=== PATIENT | female | born 1985 | race Caucasian/White ===

== ENCOUNTER 2017-06-13 14:22 | Emergency (ER) | payer OTHER ==
[~2017-06-13] VITALS: Ht 165.1 cm; Wt 61.7 kg
[2017-06-13 14:29] VITALS: BP 123/80; Ht 165.1 cm; Wt 61.7 kg
== END 2017-06-13 15:35 | disposition home or self-care (01) ==
LOC: ED 14:22
DX: G89.29 Other chronic pain (principal); M54.2 Cervicalgia; M54.9 Dorsalgia, unspecified; V89.2XXA Person injured in unspecified motor-vehicle accident, traffic, initial encounter; Y93.73 Activity, racquet and hand sports; Y92.89 Other specified places as the place of occurrence of the external cause; Y99.8 Other external cause status
CPT/HCPCS: J1885

== ENCOUNTER 2017-06-27 15:04 | Emergency (ER) | payer OTHER ==
[~2017-06-27] VITALS: Ht 167.6 cm; Wt 64.9 kg
[2017-06-27 15:19] VITALS: Ht 167.6 cm; Wt 64.9 kg
[2017-06-27 16:56] LABS: BASOPHIL % 0.1 % (0-2); PLATELET COUNT 277 x10^3mcL (130-400); RED CELL DISTRIBUTION WIDTH 12.5 % (11.5-14.5)
[2017-06-27 17:55] VITALS: BP 134/74
== END 2017-06-27 17:55 | disposition home or self-care (01) ==
LOC: ED 15:04
PROVIDERS: Emergency Medicine
DX: K62.5 Hemorrhage of anus and rectum (principal); K59.00 Constipation, unspecified; G89.29 Other chronic pain; M54.9 Dorsalgia, unspecified; F31.9 Bipolar disorder, unspecified; F90.9 Attention-deficit hyperactivity disorder, unspecified type
CPT/HCPCS: 36415

== ENCOUNTER 2017-09-17 17:48 | Emergency (ER) | payer OTHER ==
[~2017-09-17] VITALS: Ht 165.1 cm; Wt 65.3 kg
[2017-09-17 17:58] VITALS: Ht 165.1 cm; Wt 65.3 kg
[2017-09-17 21:17] VITALS: BP 148/84
== END 2017-09-17 21:17 | disposition home or self-care (01) ==
LOC: ED 17:48
DX: L25.8 Unspecified contact dermatitis due to other agents (principal); F31.9 Bipolar disorder, unspecified; Z88.5 Allergy status to narcotic agent
CPT/HCPCS: J2930; Q0163

== ENCOUNTER 2018-08-13 01:41 | Emergency (ER) | payer OTHER ==
[~2018-08-13] VITALS: Ht 165.1 cm; Wt 66.0 kg
[2018-08-13 01:52] VITALS: Ht 165.1 cm; Wt 66.0 kg
[2018-08-13 04:12] VITALS: BP 137/77
== END 2018-08-13 04:12 | disposition home or self-care (01) ==
LOC: ED 01:41
DX: K64.9 Unspecified hemorrhoids (principal); F31.9 Bipolar disorder, unspecified

== ENCOUNTER 2019-01-11 16:49 | Emergency (ER) | payer OTHER ==
[~2019-01-11] VITALS: Ht 167.6 cm; Wt 74.6 kg
[2019-01-11 17:36] VITALS: Ht 167.6 cm; Wt 74.6 kg
[2019-01-11 19:25] VITALS: BP 114/71
== END 2019-01-11 19:25 | disposition home or self-care (01) ==
LOC: ED 16:49
DX: S81.832A Puncture wound without foreign body, left lower leg, initial encounter (principal); F31.9 Bipolar disorder, unspecified; G89.29 Other chronic pain; W54.0XXA Bitten by dog, initial encounter; Y93.89 Activity, other specified; Y92.89 Other specified places as the place of occurrence of the external cause; Y99.8 Other external cause status
CPT/HCPCS: 90715

== ENCOUNTER 2019-05-29 15:13 | Emergency (ER) | payer OTHER ==
[~2019-05-29] VITALS: Ht 167.6 cm; Wt 63.5 kg
[2019-05-29 16:50] VITALS: BP 124/72
== END 2019-05-29 16:50 | disposition home or self-care (01) ==
LOC: ED 15:13
DX: J32.9 Chronic sinusitis, unspecified (principal); G89.29 Other chronic pain

== ENCOUNTER 2020-05-19 09:21 | Emergency (ER) | payer OTHER ==
[~2020-05-19] VITALS: Ht 167.6 cm; Wt 66.2 kg
[2020-05-19 09:33] VITALS: Ht 167.6 cm; Wt 66.2 kg
[2020-05-19] MEDS ORDERED: ULTRAM50 MG PO (09:52)
[2020-05-19 10:09] VITALS: BP 133/80
== END 2020-05-19 10:09 | disposition home or self-care (01) ==
LOC: ED 09:21
DX: S01.01XA Laceration without foreign body of scalp, initial encounter (principal); W18.30XA Fall on same level, unspecified, initial encounter; Y93.89 Activity, other specified; Y92.89 Other specified places as the place of occurrence of the external cause; Y99.8 Other external cause status